=== PATIENT | female | born 2000 | race Caucasian/White ===

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

== ENCOUNTER → 2022-12-20 15:27 | Outpatient (CLI) | payer OTHER, MEDICAID, SELFPAY ==
[2022-12-20 15:52] LABS: Add Manual Diff / Slide Review NO; Basophils Absolute Auto 0 /uL (0-100); Basophils Percent Auto 0.2 % (0-2); Eosinophils Absolute Auto 200 /uL (0-450); Eosinophils Percent Auto 2.5 % (2-4); Hematocrit 39.2 % (36-46); Hemoglobin 13.6 g/dL (12.0-16.0); Lymphocytes Absolute Auto 2400 /uL (1100-4500); Lymphocytes Percent Auto 32.3 % (25-40); Mean Corpuscular HGB Conc 34.8 % (30-36); Mean Corpuscular Hemoglobin 29.3 PG (26-34); Mean Corpuscular Volume 84.2 fL (80-100); Monocytes Absolute Auto 400 /uL (0-900); Monocytes Percent Auto 5.7 % (3-14); Neutrophils Absolute Auto 4500 /uL (1500-7000); Neutrophils Percent Auto 59.3 % (50-75); Platelet Count 382 X10^3/uL (150-400); Red Blood Cell Count 4.66 X10^6/uL (4.0-5.2); Red Cell Distribution Width 13.2 % (11.6-14.8); White Blood Cell Count 7.6 X10^3/uL (4.5-11.0)
[2022-12-20 16:03] LABS: Prothrombin Time 11.2 SECONDS (10.1-12.7)
[2022-12-20 16:06] LABS: PTT Partial Thromboplastin Tim 28 SECONDS (26-36)
== END ==
PROVIDERS: PCP Family Medicine; Referring Provider Family Medicine; Visit Provider Family Medicine
DX: R23.3 Spontaneous ecchymoses (principal)
CPT/HCPCS: 36415; 85025; 85610; 85730

== ENCOUNTER 2025-03-21 11:58 | Emergency (ER) | payer OTHER, SELFPAY ==
--- OUTSIDE RECORDS SUMMARY | 2025-03-21 12:00 | XMS_ITS | Clinical Summary ---
Author Organization [facility] Address [address] [place] [address] Care Team Providers Care Planning Supervisor Name Role Phone Pcp, None Selected Primary Care Provider Unavail able Allergies Active Allergy Reactions Criticality Noted Date Comments Amoxicillin Rash High 12/10/2016 Medications drospirenone-eth inyl estradioL (FEROZ) 3-0.03 mg per tablet Take 1 tablet by mouth once daily 09/01/2020 Active Active Problems Problem Noted Date Diagnosed Date Sprain of anterior cruciate ligament of left kne e 07/07/2018 Internal derangement of left knee 04/21/2018 Assessment & Plan (04/21/2018 4:45 PM PST): Impression: I am not quite sure of meniscal pathology. I will request for the radiologist to view recent MRI scans again. If negative, discussed with the patient to consider a trial of cortisone injection if symptoms continue to persist. Follow up PRN. Plan: Recent MRI results reviewed today. I will ask our radiologist to review your MRI scans again to rule out a peripheral tear of the meniscus. We will call you later once we hear back from the radiologist. If symptoms continue to persist, we discussed considering a cortisone injection. Follow up as you feel indicated. Patellofemoral pain syndrome of left knee 2017 Injury of calf 01/02/2017 Immunizations Immunization Administration Dates Next Due Moderna SARS-CoV-2 Vaccine Monovalent 08/10/2020 ,07/13/2020 Family History Medical History Relation Comments Asthma Father Retinal detachment Father Diabetes Mother Relation Status Comments Father Mother Social History Tobacco Use Types Packs/Day Years Used Date Smoking Tobacco: Never Smokeless Tobacco: Never Alcohol Use Standard Drinks/Week Comments No 0 (1 standard drink = 0.6 oz pur e alcohol) Comments Unknown Sex and Gender Information Value Date Recorded Sex Assigned at Female 01/02/2017 11:43 AM PDT Legal Sex Female 12:05 PM PDT Gender Identity Female 01/02/2017 11:43 AM PDT Sexual Orientation Not on file Last Filed Vital Signs Vital Sign Reading Time Taken Comments Blood Pressure 108/68 07/07/2018 9:45 AM PDT Pulse 56 07/07/2018 9:45 AM PDT Temperature - - Respiratory Rate - - Oxygen Saturation 98% 07/07/2018 9:45 AM PDT Inhaled Oxygen Concentration - - Weight 68 kg (150 lb) 09/05/2020 8:58 AM PDT Height 162.6 cm (5' 4) 09/05/2020 8:58 AM PDT Body Mass Index 25.75 09/05/2020 8:58 AM PDT Plan of Treatment Health Maintenance Due Date Last Done Comments MMR Vaccines (1 of 1 - Standard series) 06/23/2003 Depression Screening (PHQ-2) 2014 Varicella Vaccines (1 of 2 - 13+ 2-dose series) 06/23/2015 HPV Vaccines (1 - 3-dose series) 2017 DTaP,Tdap,and Td Vaccines (1 - Tdap) 2021 Hepatitis B Vaccines (1 of 3 - 19+ 3-dose series) 2021 Cervical Cancer Screening 06/23/2023 COVID-19 Vaccine (3 - 2024-2 6 season) 2024 08/10/2020, 07/13/2020 Influenza Vaccine (#1) 2024 RSV Patients Over 60 years O R qualifying ( Patients) (1 - 1-dose 75+ series) 2077 HM Pneumococcal Combined Age 0-49 Aged Out No longer eligible b ased on patient's age to complete this topic Hepatitis A Vaccines Aged Out No long er eligible based on patient's age to complete this topic IPV Vaccines Aged Out No longer eligi ble based on patient's age to complete this topic Meningococcal Vaccine Aged Out No melany virgilio eligible based on patient's age to complete this topic [place] [address] [place] [address] [employer] Care Teams Planning Supervisor Relationship Specialty Start Date End Date Pcp, None Selected PCP - General 07/08/24
[2025-03-21 12:06] VITALS: BP 130/76; PULSE 81; RESP 18; TEMP 36.4; O2SAT 100; BMI 28.8
--- NOTE | 2025-03-21 12:08 | DI.US.S_ITS ---
PROCEDURE: US ABDOMEN LIMITED INDICATIONS: ruq TECHNIQUE: Real-time scanning was performed of the abdominal and retroperitoneal organs, with image documentation. COMPARISON: [facility], US, US ABDOMEN COMPLETE, 09/08/2019, 9:14. FINDINGS: Liver: Liver is normal in size and homogeneous in echotexture. Mildly increased hepatic echogenicity. Gallbladder: No gallstones. No wall thickening. No pericholecystic edema. Negative sonographic Vides's sign. Biliary ducts: Intrahepatic bile ducts are non-dilated. Extrahepatic bile duct caliber measures 5.2 mm. Normal is 6-7 mm or less in diameter, or 10 mm or less post-cholecystectomy. Pancreas: Visualized portions of the pancreas are sonographically normal. Miscellaneous: No free abdominal fluid. IMPRESSION: No cholelithiasis or sonographic evidence of acute cholecystitis. Mildly increased hepatic echogenicity is nonspecific, can be seen in setting of hepatic steatosis. Recommend correlation with LFTs. Approved by: Aditi Thomas M.D.,Ph.D. on 03/21/2025 at 13:21
--- NOTE | 2025-03-21 12:11 | ED.ABDPAIN ---
HPI - Abdominal Pain General Chief Complaint: Abdominal Pain Stated Complaint: Upper right side back pain , 4 days Time Seen by Provider: 03/21/25 12:05 Source: patient Mode of arrival: Ambulatory History of Present Illness HPI narrative: Patient is a healthy 24-year-old female presenting today with right upper quadrant pain. She reports radiates around her back been there for the last 3-4 days normal nausea or vomiting. Has not had much relief with Tylenol or ibuprofen. Denies any injury no chest pain or shortness of breath Related Data Previous Rx's ?Medication ?Instructions ?Recorded drospirenone 3 mg-ethinyl 1 tab PO DAILY #168 tabs 04/30/22 estradiol 0.03 mg tablet (Ynes (28)) methocarbamol 750 mg tablet 1,500 mg (2 x 750 mg) PO Q8H PRN 03/21/25 muscle spasm #20 tabs Allergies Allergy/AdvReac Type Severity Reaction Status Date / Time amoxicillin Allergy Mild RASH Verified 03/21/25 12:06 Penicillins Allergy Rash Verified 03/21/25 12:06 Patient History Social History Smoking Status: Never smoker Smoking Status: Never smoker Exam Initial Vital Signs Initial Vital Signs: Vital Signs Temperature 97.6 F 03/21/25 12:06 Pulse Rate 81 03/21/25 12:06 Respiratory Rate 18 03/21/25 12:06 Blood Pressure 130/76 03/21/25 12:06 Pulse Oximetry 100 03/21/25 12:06 Oxygen Delivery Method Room Air 03/21/25 12:06 GENERAL: Alert well-appearing 24-year-old female and in no acute distress. HEENT: Head atraumatic,EOMI, pupils reactive, face symmetric, moist mucous membranes CARDIOVASCULAR: Regular rate and rhythm without murmurs, rubs or gallops. RESPIRATORY: Breath sounds equal bilaterally, no wheezes rales or rhonchi. ABDOMEN: Soft, positive Vides's sign or guarding no rebound no distinct : No CVA tenderness EXTREMITIES: Normal range of motion, no clubbing or edema. Neurovascularly intact NEUROLOGICAL: Alert and oriented x4.Normal gait and speech. Cranial nerves II through XII grossly intact. SKIN: Warm, dry, no laceration, no petechiae, no rashes or lesions. Course Orders Ordered: ED Orders 03/21/25 12:08 US abdomen limited Stat 03/21/25 12:15 Complete Blood Count AUTO DIFF Stat Comprehensive Metabolic Panel Stat Lipase Stat 03/21/25 12:45 Urine Microscopic Stat Discontinued Medications Ketorolac Tromethamine (Ketorolac 30 Mg/Ml Vial) 15 mg IV NOW ONE Stop: 03/21/25 12:09 Last Admin: 03/21/25 12:46 Dose: 15 mg Documented By: STAN Vital Signs Vital signs: Vital Signs - 8 hr 03/21/25 12:06 03/21/25 12:55 Temperature 97.6 F Pulse Rate 81 60 Respiratory Rate 18 14 Blood Pressure 130/76 132/81 Pulse Oximetry 100 99 Oxygen Delivery Method Room Air Room Air MDM - Abdominal Pain Lab Data 03/21/25 12:15 03/21/25 12:15 Labs: Lab Results 03/21/25 03/21/25 Range/Units 12:15 12:45 WBC 8.3 (4.5-11.0) X10^3/uL RBC 4.63 (4.0-5.2) X10^6/uL Hgb 13.7 (12.0-16.0) g/dL Hct 40.0 (36-46) % MCV 86.4 (80-100) fL MCH 29.5 (26-34) PG MCHC 34.2 (30-36) % RDW 12.9 (11.6-14.8) % Plt Count 427 H (150-400) X10^3/uL Neut % (Auto) 43.0 L (50-75) % Lymph % (Auto) 47.9 H (25-40) % [place] % (Auto) 5.0 (3-14) % Eos % (Auto) 2.5 (2-4) % Baso % (Auto) 1.6 (0-2) % Neut # (Auto) 3500 (7224-5015) /uL Lymph # (Auto) 4000 (6200-9675) /uL [place] # (Auto) 400 (0-900) /uL Eos # (Auto) 200 (0-450) /uL Baso # (Auto) 100 (0-100) /uL Sodium 135 L (137-145) mmol/L Potassium 4.2 (3.4-5.1) mmol/L Chloride 106 (98-107) mmol/L Carbon Dioxide 20 L (22-32) mmol/L BUN 10 (7-17) mg/dL Creatinine 0.67 (0.52-1.04) mg/dL Estimated GFR > 60 (>60) mL/min BUN/Creatinine Ratio 14.9 (6-22) Glucose 97 (70-99) mg/dL Calcium 8.7 (8.4-10.2) mg/dL Total Bilirubin 1.7 H (0.2-1.3) mg/dL AST 44 H (14-36) IU/L ALT 38 H (<35) IU/L Alkaline Phosphatase 40 (38-126) U/L Total Protein 7.8 (6.3-8.2) g/dL Albumin 4.4 (3.5-5.0) g/dL Globulin 3.4 (1.7-4.1) g/dL Albumin/Globulin Ratio 1.3 (1.0-2.8) Lipase 54 (23-300) U/L Urine RBC None seen (0-5/HPF) Urine WBC None seen (0-5/HPF) Ur Squamous Epith Cells None seen (0-5/HPF) Urine Bacteria None seen (None) Ur Culture Indicated? Cult not indicated Vol Urine Centrifuged 10ml (spun) Point of care testing: Point of Care Testing Test Results Negative Urine Dip Bedside Urine Glucose Negative Bedside Urine Bilirubin + 1 Bedside Urine Ketone - Negative Urine Specific [place] 1.030 Bedside Urine Occult Blood - Negative Bedside Urine pH 6.0 Bedside Urine Protein +/- 15 Bedside Urine Urobilinogen - Negative Bedside Urine Nitrite - Negative Bedside Urine Leukocytes - Negative Esterase Imaging Data US - abdomen: Radiologist's Impression: PROCEDURE: US ABDOMEN LIMITED INDICATIONS: ruq TECHNIQUE: Real-time scanning was performed of the abdominal and retroperitoneal organs, with image documentation. COMPARISON: [facility], US, US ABDOMEN COMPLETE, 09/08/2019, 9:14. FINDINGS: Liver: Liver is normal in size and homogeneous in echotexture. Mildly increased hepatic echogenicity. Gallbladder: No gallstones. No wall thickening. No pericholecystic edema. Negative sonographic Vides's sign. Biliary ducts: Intrahepatic bile ducts are non-dilated. Extrahepatic bile duct caliber measures 5.2 mm. Normal is 6-7 mm or less in diameter, or 10 mm or less post-cholecystectomy. Pancreas: Visualized portions of the pancreas are sonographically normal. Miscellaneous: No free abdominal fluid. IMPRESSION: No cholelithiasis or sonographic evidence of acute cholecystitis. Mildly increased hepatic echogenicity is nonspecific, can be seen in setting of hepatic steatosis. Recommend correlation with LFTs. Approved by: Aditi Thomas M.D.,Ph.D. on 03/21/2025 at 13:21 MDM Narrative Medical decision making narrative: MDM CC: Right upper quadrant pain Complicating co-morbidities: None Data collected from: Patient Medical records reviewed: Previous ER records from 2022 and PCP been reviewed no records for 2023 or 2024 Differential considered: Musculoskeletal cholelithiasis cholecystitis Exam documented above, pertinent findings include: Tender right upper quadrant positive Vides's sign no guarding no rebound some slight posterior rib pain Lab Test results independently reviewed as above. Pertinent findings: CBC within normal limits CMP electrolytes within normal limits Total bilirubin 1.7 [place] AST 44, ALT 38 alk-phos 40 lipase 54 Imaging studies independently reviewed: Ultrasound shows no cholelithiasis but possible hepatic steatosis Consultations: none Treatments: Toradol Re-evaluations: Minimal relief after Toradol. Discussion: Patient 24-year-old female presenting today with right upper quadrant pain. She has a very slight elevation of AST ALT and bilirubin. Ultrasound shows hepatic steatosis which correlates. Upon further questioning patient reports that she drinks about twice a day weak but does drink quite a bit during those times. She really is tender pinpoint in her thoracic area as suspect possible like muscle spasm. She does not feel much better after Toradol. We discussed heat, stretches and pain control at home. We also discussed cutting back drinking as well. He also asked about Tylenol use over the last couple of days for pain sounds like she is taking the appropriate amount and not excessive low suspicion for Tylenol toxicity. Discharge Plan Departure Patient Disposition: Home Clinical Impression: Muscle spasm, Hepatic steatosis Instructions: DI for Muscle Spasm Activity Restrictions/Additional Instructions: *You have been diagnosed with muscle spasm elevated liver enzymes *What to do: At this time I think your back is hurting due to a possible muscle spasm. Recommend heat stretching in light movement. Avoid strenuous activity. Also liver enzymes are slightly elevated and liver appears congested. Recommend decreasing your alcohol intake and having labs rechecked with primary care provider *Continue to take medications as directed Motrin 600 mg every 6 hours for [id number] pain Methocarbamol 750 mg -1500mg every 8 hours if needed for muscle spasm *Follow up with your primary care provider in 2-3 days or call [phone] *Return to ER if you should have increasing pain nausea vomiting fever or any new, worsening or concerning symptoms Prescriptions: New methocarbamol 750 mg tablet 1,500 mg PO Q8H PRN (Reason: muscle spasm) Qty: 20 0RF No Action drospirenone-ethinyl estradiol [Ynes (28)] 3-0.03 mg tablet 1 tab PO DAILY Qty: 168 1RF Referrals: Karol Patel MD [Primary Care Provider, Family Practice] Stand Alone Forms: Patient Portal/API
[2025-03-21 12:30] LABS: Add Manual Diff / Slide Review NO; Hematocrit 40.0 % (36-46); Hemoglobin 13.7 g/dL (12.0-16.0); Lymphocytes Absolute Auto 4000 /uL (1100-4500); Mean Corpuscular HGB Conc 34.2 % (30-36); Mean Corpuscular Hemoglobin 29.5 PG (26-34); Mean Corpuscular Volume 86.4 fL (80-100); Platelet Count 427 X10^3/uL (150-400)
[2025-03-21 12:45] LABS: Alanine Aminotransferase 38 IU/L (<35); Albumin 4.4 g/dL (3.5-5.0); Albumin Globulin Ratio 1.3 (1.0-2.8); Alkaline Phosphatase 40 U/L (38-126); Blood Urea Nitrogen 10 mg/dL (7-17); Calcium 8.7 mg/dL (8.4-10.2); Carbon Dioxide 20 mmol/L (22-32); Chloride 106 mmol/L (98-107); Estimated Glomerular Filt Rate > 60 mL/min (>60); Globulin 3.4 g/dL (1.7-4.1); Glucose 97 mg/dL (70-99); HEMOLYSIS 111 (0-50); Lipase 54 U/L (23-300); Potassium 4.2 mmol/L (3.4-5.1); Sodium 135 mmol/L (137-145); Total Protein 7.8 g/dL (6.3-8.2)
[2025-03-21] MEDS: KETOROLAC 30 MG/ML VIAL 15 MG IV (12:46)
--- NOTE | 2025-03-21 12:54 | PC.NURSE ---
Iv placed by another nurse
[2025-03-21 12:55] VITALS: BP 132/81; PULSE 60; RESP 14; O2SAT 99
[2025-03-21 13:21] LABS: Culture Indicated Urine Cult Not Indicated
== END 2025-03-21 14:14 | disposition home or self-care (01) ==
PROVIDERS: Emergency Provider Emergency Medicine; PCP Family Medicine
DX: M62.838 Other muscle spasm (principal); K76.0 Fatty (change of) liver, not elsewhere classified; M54.9 Dorsalgia, unspecified
CPT/HCPCS: 76705; 80053; 81003; 81015; 81025; 83690; 85025; 96374; 99283; 99284; J1885